=== PATIENT | female | born 1975 | race Caucasian/White ===

== ENCOUNTER → 2021-01-10 15:49 | Outpatient (CLI) | payer BC, SELFPAY ==
--- NOTE | ~2021-01-10 | MM_ITS ---
EXAMINATION: MM screening elizabeth BI w semaj HISTORY: Screening TECHNIQUE: Craniocaudal and mediolateral oblique 3-D tomosynthesis images were obtained and synthetic 2-D images were generated. CAD analysis was submitted and interpreted. COMPARISON: No prior mammogram is available for comparison at this institution. BREAST PARENCHYMAL COMPOSITION: The breasts are extremely dense, which lowers the sensitivity of mamm ography. FINDINGS: There is no evidence of suspicious mass, calcification, or architectural distortion to sugg est malignancy in either breast. There has been no suspicious interval change. IMPRESSION: 1. No mammographic evidence of malignancy. 2. Recommend routine screening mammography in one year. BI-RADS Category 1: Negative Reviewed, dictated and finalized at location A.
== END ==
PROVIDERS: PCP Family Medicine; Visit Provider Obstetrics & Gynecology
DX: Z12.31 Encounter for screening mammogram for malignant neoplasm of breast (principal)
CPT/HCPCS: 77063; 77067

== ENCOUNTER 2021-04-13 10:29 | Emergency (ER) | payer BC, SELFPAY ==
[2021-04-13] VITALS (11 sets, daily range): BP systolic 143–180; BP diastolic 89–109; PULSE 65–79; RESP 16–25; TEMP 36.6–36.9; O2SAT 100
--- NOTE | ~2021-04-13 | XR_ITS ---
EXAMINATION: XR chest 2V DATE: 04/13/2021 12:46 INDICATION: Chest discomfort when breathing TECHNIQUE: PA and lateral views of the chest are obtained. COMPARISON: None available FINDINGS: The lungs are free of acute opacities. There is no pleural effusion or pneumothorax. The ca rdiomediastinal silhouette is normal. The visualized bones and soft tissues are unremarkable. IMPRESSION: 1. No acute cardiopulmonary abnormality. Reviewed, dictated and finalized at location B.
--- NOTE | 2021-04-13 11:54 | ECG_ITS ---
Measurements Intervals [place] Rate: 63 P: 40 MI: 130 QRS: 30 QRSD: 90 T: 46 QT: 386 QTc: 395 Interpretive Statements SINUS RHYTHM INCOMPLETE RIGHT BUNDLE BRANCH BLOCK BASELINE ARTIFACT- I, II, AVR, AVL BORDERLINE ECG Electronically Signed On 04-13-2021 12:48:31 CDT by Garry Patricia D.O.
[2021-04-13 12:08] LABS: Basophils Absolute Auto 0.1 K/mm3 (0.0-0.1); Basophils Percent Auto 0.7 % (0.2-1.2); Eosinophils Percent Auto 0.3 % (0-4.4); Hematocrit 44.7 % (37.0-47.0); Hemoglobin 15.1 g/dL (12.0-15.0); Immature Granulocyte Absolute 0.03 K/mm3 (0.00-0.031); Immature Granulocyte Percent A 0.3 % (0-0.5); Lymphocytes Absolute Auto 2.75 K/mm3 (0.9-3.2); Lymphocytes Percent Auto 31.9 % (18.3-44.2); Mean Corpuscular HGB Conc 33.8 g/dl (32-36); Mean Corpuscular Hemoglobin 30.5 pg (26-34); Mean Corpuscular Volume 90.3 fl (80-100); Mean Platelet Volume 8.8 fl (7.4-10.4); Monocytes Absolute Auto 0.9 K/mm3 (0.1-0.6); Monocytes Percent Auto 10.3 % (2.6-8.5); Neutrophils Absolute Auto 4.9 K/mm3 (1.3-6.7); Neutrophils Percent Auto 56.5 % (45.5-73.1); Platelet Count Result 323 k/mm3 (150-375); Red Blood Count 4.95 M/mm3 (4.2-5.4); Red Cell Distribution Width 12.4 % (11.5-14.5); White Blood Count 8.6 K/mm3 (4.5-10.0)
[2021-04-13 12:18] LABS: INR 0.9; Partial Thromboplastin Time 25.9 SECONDS (22.3-36.8)
[2021-04-13 12:31] LABS: Anion Gap 8 mmol/L (8-16); Blood Urea Nitrogen 16 mg/dL (7-17); Calcium 10.2 mg/dL (8.4-10.2); Carbon Dioxide 28 mmol/L (22-30); Chloride 104 mmol/L (98-107); Estimated CRCL calculation 55 ml/min; Estimated Glomerular Filt Rate 60; Glucose 99 mg/dL (65-110); Potassium 4.7 mmol/L (3.4-5.0); Sodium 140 mmol/L (137-145)
--- NOTE | 2021-04-13 12:31 | ED.CHESTPAIN ---
HPI - Chest Pain General Chief Complaint: Dizziness Stated Complaint: pain with deep breathing/lightheaded Time Seen by Provider: 04/13/21 12:21 Source: patient Mode of arrival: ambulatory Limitations: no limitations History of Present Illness HPI narrative: This is a 46-year-old female that presents to the emergency department for left-sided chest pain noted over the last couple of days. Pain is worse with deep breathing. No known alleviating factors. Also reports lightheadedness upon standing. Denies fever, cough, lower extremity edema, recent travel or surgery, or smoking. Related Data Home Medications Medication Instructions Recorded Confirmed norethindrone 1 mg-ethin. 1 cap PO DAILY 01/07/21 04/13/21 estradiol 20 mcg (24)-iron 75 mg (4) capsule L.acidophilus,gasseri,rhamnosus-B.bifidum,long cap PO 04/13/21 04/13/21 3 billion cell capsule Allergies Allergy/AdvReac Type Severity Reaction Status Date / Time Penicillins Allergy Unknown Verified 04/13/21 13:22 shellfish derived Allergy Unknown Verified 04/13/21 13:22 Review of Systems Review of Systems: CONSTITUTIONAL: Denies fever CARDIOVASCULAR: Reports chest pain. Denies edema. RESPIRATORY: Denies cough or dyspnea. All systems reviewed & are unremarkable except as noted in HPI and below PMFSH Past Medical History Medical History (Updated 04/13/21 @ 16:05 by Noreen Garcia PA-C) Allergies delivery delivered (~10/01/10) Heart murmur IBS (irritable bowel syndrome) Family History Family History Father Aneurysm Brain Mother Hypertension Sibling Hypertension Heart murmur Grandparent Diabetes mellitus Cerebrovascular accident Cardiovascular disease Social History Social History Social History: , 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 HEAD: Normocephalic, atraumatic. EYES: EOMI. CHEST: Clear to auscultation. No respiratory distress. No wheezes rales or rhonchi HEART: Regular rate and rhythm. No murmur heard. Normal peripheral pulses. EXTREMITIES: Normal range of motion. No edema. SKIN: Warm, dry, no rash. NEURO: No focal deficits. Alert and oriented x3. PSYCH: Normal mood and affect Course Vital Signs Vital signs: Vital Signs Temperature 98.4 F 04/13/21 11:52 Pulse Rate 65 04/13/21 11:52 Respiratory Rate 16 04/13/21 11:52 Blood Pressure 165/107 H 04/13/21 11:52 Pulse Oximetry 100 04/13/21 11:52 Temperature 98.4 F 04/13/21 12:24 Pulse Rate 73 04/13/21 15:12 Respiratory Rate 19 04/13/21 15:12 Blood Pressure 143/91 H 04/13/21 15:12 Pulse Oximetry 100 04/13/21 15:12 MDM - Chest Pain MDM Narrative Medical decision making narrative: Patient presents to the emergency department for chest pain ongoing over the last couple of days. Worse with deep breathing and certain movements. She is afebrile and nontoxic-appearing. Blood pressure noted to be elevated on arrival, this down trended on its own. Most recent blood pressure 143/91. Patient instructed to continue to monitor this and follow-up with her primary for this. CBC is without leukocytosis. Does show mild hemoconcentration. Metabolic panel without concerning findings. EKG without concerning changes and baseline inferior troponin are negative. Chest x-ray without acute cardiopulmonary abnormality. D-dimer is not elevated. Patient reports improvement with Toradol. Her heart score is a 1. Patient was updated on case findings. She is stable and felt appropriate for further outpatient evaluation. She was given warnings to return to the ER Lab Data Attestation: I reviewed the patient's lab results. Result diagra
--- NOTE | 2021-04-13 12:41 | PC.NURSE ---
Pt off floor to radiology
[2021-04-13 12:44] LABS: Troponin I < 0.012 ng/mL (0.000-0.034)
[2021-04-13 13:01] LABS: D Dimer 0.34 ug/mL (<0.48)
--- NOTE | 2021-04-13 13:05 | PC.NURSE ---
Clarified with DELFIN Sorto. No need for protocol aspirin at this time.
[2021-04-13] MEDS: KETOROLAC 30 MG/ML VIAL (*BKC) IV PUSH (13:23)
[2021-04-13 15:55] LABS: Troponin I < 0.012 ng/mL (0.000-0.034)
== END 2021-04-13 16:27 | disposition home or self-care (01) ==
PROVIDERS: Emergency Medicine; Physician Assistant; Emergency Provider Emergency Medicine; PCP Family Medicine
DX: I10 Essential (primary) hypertension (principal); R07.89 Other chest pain
CPT/HCPCS: 36415; 71046; 80048; 81025; 84484; 85025; 85380; 85610; 85730; 93005; 96374; 99284; J1885

== ENCOUNTER 2024-03-05 10:03 | Day surgery (SDC) | payer OTHER, SELFPAY ==
[2024-02-15 14:42] VITALS: BMI 28.3
[2024-02-19 12:01] VITALS: BMI 28.0
[2024-03-05 11:12] VITALS: BP 123/87; PULSE 85; RESP 14; TEMP 37.2; O2SAT 99
[2024-03-05] MEDS: LACTATED RINGERS 1,000 ML 150 ML IV CONT (11:18)
--- NOTE | 2024-03-05 11:37 | WPDANESEPPF ---
Anes - Initial Pre Proc Eval Procedure: Operation Date: 03/05/24 12:30 Proposed Procedures p Screening Colonoscopy - Benny Navarro MD Date/Time: 03/05/24 11:37 Surgeon: Benny Navarro MD Pre Op Diagnosis: Neoplasm Screening Patient Data Age: 49 Gender: F Height: 1.55 m Weight: 65.35 kg Last Vital Signs Temp 37.2 C 03/05/24 11:12 Pulse 85 03/05/24 11:12 Resp 14 03/05/24 11:12 BP 123/87 03/05/24 11:12 Pulse Ox 99 03/05/24 11:12 O2 Del Method Room Air 03/05/24 11:12 Allergies Allergy/AdvReac Type Severity Reaction Status Date / Time Penicillins Allergy Unknown Verified 03/05/24 11:03 shellfish derived Allergy Unknown Verified 03/05/24 11:03 Home Medications Medication Instructions Recorded Confirmed Type L.acidophilus,gasseri,rhamnosus-B.bifidum,long 1 cap PO DAILY 04/13/21 03/05/24 History 3 billion cell capsule (Digestive Probiotic) levonorgestrel 21 mcg/24 hr (up to 1 device intrauterine ONCE 01/10/22 03/05/24 History 8 years) 52 mg intrauterine device (Mirena) spironolactone 100 mg tablet 150 mg PO DAILY to block acne 01/10/22 03/05/24 History hormone buspirone 5 mg tablet 5 mg PO TID #270 tabs 01/15/23 03/05/24 Rx atorvastatin 20 mg tablet (Lipitor) 20 mg PO QHS #90 tabs 09/07/23 03/05/24 Rx amlodipine 5 mg tablet 5 mg PO DAILY #90 tabs 12/06/23 03/05/24 Rx cholecalciferol (vitamin D3) 50 50 mcg PO DAILY 01/14/24 03/05/24 History mcg (2,000 unit) tablet Super Beet 1 caplet PO DAILY 02/19/24 03/05/24 History Patient hx anesthesia problems: none Family hx anesthesia problems: none Results Review: All pre-operative results and documents have been reviewed as part of the pre-operative evaluation. 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 Alcohol intake: current Alcohol use details: 4 drinks per month Substance use: never Substance use type: does not use Lack of Transportation: No Lack of Food: Never True Current Housing: I Have Housing Concerned About Future Housing: No Difficulty Paying Gas/Electric Bills: No Difficulty Paying for Meds: No Currently Unemployed: No Education: Bachelor's Degree Difficulty w/ Childcare or Family Care: No Living arrangements: with family Occupation/Education: occupation Gender identity (if verbalized by the patient): Female Sexual Orientation (if Verbalized by the Patient): Straight or Heterosexual Spiritual care concerns: No Agree to blood products: Yes Anes - Eval Final PreProcedure Day of Procedure 03/05/24 11:37 Patient weight: overweight Heart: regular rate and rhythm Lungs: clear to auscultation Airway: Mallampati scale class II Neurological: alert and oriented Last oral intake: >/= 8 hours ASA classification: III Emergent: no Anesthetic plan: proceed Anesthesia type and monitoring: general GIVS and standard monitoring Results Review: All pre-operative results and documents have been reviewed as part of the pre-operative evaluation. Informed Consent: The patient's anesthetic plan and its attendant risks
--- NOTE | 2024-03-05 11:48 | PM.HPGS ---
History of Present Illness History of Present Illness Consent: Risks, benefits, and alternatives have been discussed and questions answered. Patient agrees to proceed with procedure. Chief complaint: Neoplasm Screening Narrative: Sima Brown is a 49 year old female presents for screening colonoscopy. Patient's current weight appetite and bowel movements are normal. She denies abdominal pain. Patient has had no bleeding. Family history is noncontributory. Review of Systems Review of Systems: All systems reviewed & are unremarkable except as noted in HPI and below PMFSH Past Medical History Medical History Anxiety Dyslipidemia Environmental allergies Essential (primary) hypertension Family history of hemochromatosis Heart murmur (~2010) Irritable bowel syndrome with constipation and diarrhea Vitamin D deficiency Surgical History Surgical History History of (~09/2010) Family History Family History Father Aneurysm Brain Mother Hypertension Sibling Hypertension Heart murmur Grandparent Diabetes mellitus Cerebrovascular accident Cardiovascular disease Social History Social History Social History: , 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 Alcohol intake: current Alcohol use details: 4 drinks per month Substance use: never Substance use type: does not use Lack of Transportation: No Lack of Food: Never True Current Housing: I Have Housing Concerned About Future Housing: No Difficulty Paying Gas/Electric Bills: No Difficulty Paying for Meds: No Currently Unemployed: No Education: Bachelor's Degree Difficulty w/ Childcare or Family Care: No Living arrangements: with family Occupation/Education: occupation Gender identity (if verbalized by the patient): Female Sexual Orientation (if Verbalized by the Patient): Straight or Heterosexual Spiritual care concerns: No Agree to blood products: Yes Meds Home Medications and Allergies Home Medications Medication Instructions Recorded Confirmed Type L.acidophilus,gasseri,rhamnosus-B.bifidum,long 1 cap PO DAILY 04/13/21 03/05/24 History 3 billion cell capsule (Digestive Probiotic) levonorgestrel 21 mcg/24 hr (up to 1 device intrauterine ONCE 01/10/22 03/05/24 History 8 years) 52 mg intrauterine device (Mirena) spironolactone 100 mg tablet 150 mg PO DAILY to block acne 01/10/22 03/05/24 History hormone buspirone 5 mg tablet 5 mg PO TID #270 tabs 01/15/23 03/05/24 Rx atorvastatin 20 mg tablet (Lipitor) 20 mg PO QHS #90 tabs 09/07/23 03/05/24 Rx amlodipine 5 mg tablet 5 mg PO DAILY #90 tabs 12/06/23 03/05/24 Rx cholecalciferol (vitamin D3) 50 50 mcg PO DAILY 01/14/24 03/05/24 History mcg (2,000 unit) tablet Super Beet 1 caplet PO DAILY 02/19/24 03/05/24 History Allergies Allergy/AdvReac Type Severity Reaction Status Date / Time Penicillins Allergy Unknown Verified 03/05/24 11:03 shellfish derived Allergy Unknown Verified 03/05/24 11:03 Vital Signs Vital Signs - 24 hr 03/05/24 11:12 Temperature 99 F Pulse Rate 85 Respiratory Rate 14 Blood Pressure 123/87 Pulse Oximetry 99 Oxygen Delivery Room Air Exam Narrative: Physical exam reveals patient to be alert. Vital signs stable. HEENT exam lulu below. Patient is anicteric. Lungs are clear to auscultation and percussion murmur or extra sounds. Abdominal exam bowel sounds are present soft nontender with no organomegaly. Digital external rectal exam is normal. Assessment and Plan Assessment and plan (1) Screen for colon cancer: Code(s): Z12.11 - Encounter for screening for malignant neoplasm of colon Status: Acut
[2024-03-05 12:04] VITALS: BP 106/74; PULSE 82; RESP 15; O2SAT 99
[2024-03-05 12:14] VITALS: BP 117/85; PULSE 72; RESP 16; O2SAT 100
--- NOTE | 2024-03-05 12:14 | WPDANESPN ---
Anes - Prog Note Post-Op Date/Time: 03/05/24 12:14 Cardiovascular status: normal Respiratory status: normal Airway patency: baseline Mental status: baseline Post-Op hydration status: normal Vital Signs: Last Vital Signs Temp 37.2 C 03/05/24 11:12 Pulse 85 03/05/24 11:12 Resp 14 03/05/24 11:12 BP 123/87 03/05/24 11:12 Pulse Ox 99 03/05/24 11:12 O2 Del Method Room Air 03/05/24 11:12 Pain Score (VAS): 0 I/O: Intake & Output 03/04/24 03/05/24 03/05/24 23:59 07:59 15:59 Intake Total 300 Balance 300 Patient Feedback: Patient satisfied with anesthetic care.
[2024-03-05 12:24] VITALS: BP 129/87; PULSE 76; RESP 16; O2SAT 100
== END 2024-03-05 12:42 | disposition home or self-care (01) ==
PROVIDERS: PCP Family Medicine; Visit Provider Internal Medicine Gastroenterology
PROC: 0DJD8ZZ Inspection of Lower Intestinal Tract, Via Natural or Artificial Opening Endoscopic (ICD-10-PCS; CPT 45378; principal; 2024-03-05 12:30)
DX: Z12.11 Encounter for screening for malignant neoplasm of colon (principal); K64.8 Other hemorrhoids
CPT/HCPCS: 45378

== ENCOUNTER 2024-04-16 12:23 | Outpatient (CLI) | payer OTHER, SELFPAY ==
--- NOTE | ~2024-04-16 | MM_ITS ---
EXAMINATION: MM screening elizabeth BI w semaj HISTORY: Screening TECHNIQUE: Craniocaudal and mediolateral oblique 3-D tomosynthesis images were obtained and synthetic 2-D images were generated. CAD analysis was submitted and interpreted. COMPARISON: 01/10/2021 BREAST PARENCHYMAL COMPOSITION: Not dense: There are scattered areas of fibroglandular density. FINDINGS: There is no evidence of suspicious mass, calcification, or architectural distortion to sugg est malignancy in either breast. There has been no suspicious interval change. IMPRESSION: 1. No mammographic evidence of malignancy. 2. Recommend routine screening mammography in one year. BI-RADS Category 1: Negative Reviewed, dictated and finalized at location B. [employer]
== END 2024-04-16 12:24 | disposition home or self-care (01) ==
LOC: MICIMG 12:24
PROVIDERS: PCP Family Medicine; Visit Provider Family Medicine
DX: Z12.31 Encounter for screening mammogram for malignant neoplasm of breast (principal)
CPT/HCPCS: 77063; 77067

== ENCOUNTER 2025-05-06 13:19 | Outpatient (CLI) | payer OTHER, SELFPAY ==
--- NOTE | ~2025-05-06 | US_ITS ---
US soft tissue head and neck INDICATION: Thyroid goiter TECHNIQUE: Real-time sonographic images of the thyroid gland were obtained. COMPARISON: No prior studies for comparison. FINDINGS: The right thyroid lobe measures 3.8 x 1.2 x 0.8 cm. The left thyroid lobe measures 4.6 x 1.2 x 1.2 cm. There is a 3 mm cyst of the left thyroid lobe. There is normal echotexture and echogenicity throughout the thyroid gland. No discrete nodules identified. Normal vascular flow is present. IMPRESSION: 1. Unremarkable thyroid without suspicious nodule or abnormal vascularity. Reviewed, dictated and finalized at location O. [facility]
== END 2025-05-06 13:20 | disposition home or self-care (01) ==
LOC: MICIMG 13:19
PROVIDERS: PCP Family Medicine; Visit Provider Nurse Practitioner Family
DX: E04.9 Nontoxic goiter, unspecified (principal); R22.1 Localized swelling, mass and lump, neck
CPT/HCPCS: 76536